=== PATIENT | male | born 1995 | race Two or more races ===

== ENCOUNTER 2016-09-05 21:46 | Inpatient (IN) | payer MEDICARE, MEDICAID ==
[~2016-09-05] VITALS: Ht 180.3 cm; Wt 97.1 kg
[~2016-09-05 21:46] MED LIST: ARIP15TA3 PO
[2016-09-06] MEDS ORDERED: LORazepam 1 MG TABLET PO PRN (02:30)
[2016-09-06] MEDS ORDERED: ZOLPIDEM TARTRATE 10 MG TABLET PO PRN (02:30)
[2016-09-06 03:06] VITALS: BP 138/67
[2016-09-06] MEDS ORDERED: INFLUENZA VIRUS VACCINE QVS 2016-17 (3YR+)/PF 60 MCG/0.5 ML SYRINGE IM ONE (03:30)
[2016-09-06] MEDS ORDERED: -PHARMACY VACCINE NOTE- MISC ONE ×2 (03:30)
[2016-09-06 08:52] VITALS: BP 137/75
[2016-09-06] MEDS ORDERED: CloNIDine HCL 0.1 MG TABLET PO PRN (09:00)
[2016-09-06] MEDS ORDERED: MAGNESIUM OXIDE 400 MG TABLET PO ONE (13:30)
[2016-09-06] MEDS ORDERED: HYDROCORTISONE 1% 30 GM OINTMENT TP PRN (13:30)
[2016-09-06 16:26] VITALS: BP 124/65
[2016-09-06 17:04] VITALS: BP 130/70
[2016-09-06] MEDS: OLANZapine 7.5 MG TABLET PO SCH (20:39)
[2016-09-07 08:14] VITALS: BP 124/64
[2016-09-07] MEDS: CHOLECALCIFEROL (VIT D3) 2,000 UNITS TABLET PO SCH (08:28)
[2016-09-07 16:00] VITALS: BP 138/74
[2016-09-07] MEDS: OLANZapine 7.5 MG TABLET PO SCH (20:37)
[2016-09-08 05:57] VITALS: BP 105/69
[2016-09-08] MEDS: CHOLECALCIFEROL (VIT D3) 2,000 UNITS TABLET PO SCH (09:00)
[2016-09-08 16:00] VITALS: BP 134/72
[2016-09-08] MEDS: OLANZapine 7.5 MG TABLET PO SCH (20:08)
[2016-09-08] MEDS ORDERED: ACETAMINOPHEN 325 MG TABLET PO PRN (23:30)
[2016-09-08] MEDS: IBUPROFEN 600 MG TABLET PO PRN (23:37)
[2016-09-08 23:38] VITALS: BP 140/77
[2016-09-09] MEDS ORDERED: VITAD1000 PO (01:02)
[2016-09-09] MEDS ORDERED: OLAN7.5T2 PO (01:02)
[2016-09-09] MEDS: IBUPROFEN 600 MG TABLET PO PRN (09:01)
[2016-09-09] MEDS: CHOLECALCIFEROL (VIT D3) 2,000 UNITS TABLET PO SCH (09:01)
== END 2016-09-09 10:15 | disposition home or self-care (01) | DRG 885 ==
LOC: B2S 09-06 02:27 → B3A 09-06 17:04
PROVIDERS: ADMIT Psychiatry & Neurology Psychiatry; ATTEND Psychiatry & Neurology Psychiatry
DX: F25.9 Schizoaffective disorder, unspecified (principal); R45.851 Suicidal ideations; J45.909 Unspecified asthma, uncomplicated; I10 Essential (primary) hypertension; E55.9 Vitamin D deficiency, unspecified; L30.9 Dermatitis, unspecified; F12.90 Cannabis use, unspecified, uncomplicated; Z79.899 Other long term (current) drug therapy; Z88.8 Allergy status to other drugs, medicaments and biological substances; Z28.21 Immunization not carried out because of patient refusal

== ENCOUNTER 2017-10-01 14:34 | Inpatient (IN) | payer MEDICARE, MEDICAID ==
[~2017-10-01] VITALS: Ht 180.3 cm; Wt 95.9 kg
[~2017-10-01 14:34] MED LIST changes: -ARIP15TA3 PO; +OLAN7.5T2 PO; +VITAD1000 PO
[2017-10-01] MEDS ORDERED: DIVA500T35 PO (16:56)
[2017-10-01 17:29] VITALS: BP 122/72
[2017-10-01] MEDS ORDERED: INFLUENZA VIRUS VACCINE QVS 2017-18 (3YR+)/PF 60 MCG/0.5 ML SYRINGE IM ONE (18:15)
[2017-10-01] MEDS: DIVALPROEX SODIUM 500 MG DR TABLET PO SCH (20:09)
[2017-10-01] MEDS: OLANZapine 7.5 MG TABLET PO SCH (20:09)
[2017-10-01] MEDS: ZOLPIDEM TARTRATE 10 MG TABLET PO PRN (21:37)
[2017-10-02 07:13] VITALS: BP 138/76
[2017-10-02] MEDS: DIVALPROEX SODIUM 500 MG DR TABLET PO SCH ×2 (08:16→20:33)
[2017-10-02 08:20] VITALS: BP 112/69
[2017-10-02 16:05] VITALS: BP 126/84
[2017-10-02] MEDS: LORazepam 2 MG TABLET PO PRN (18:57)
[2017-10-02] MEDS: OLANZapine 7.5 MG TABLET PO SCH (20:33)
[2017-10-03] MEDS: DIVALPROEX SODIUM 500 MG DR TABLET PO SCH ×2 (08:04→20:01)
[2017-10-03] MEDS: CHOLECALCIFEROL (VIT D3) 1,000 UNITS TABLET PO SCH (09:00)
[2017-10-03] MEDS: LORazepam 2 MG TABLET PO PRN (14:16)
[2017-10-03 16:05] VITALS: BP 122/72
[2017-10-03] MEDS: MAGNESIUM OXIDE 400 MG TABLET PO SCH (17:11)
[2017-10-03] MEDS: OLANZapine 7.5 MG TABLET PO SCH (20:01)
[2017-10-03] MEDS: ZOLPIDEM TARTRATE 10 MG TABLET PO PRN (21:24)
[2017-10-04] MEDS: DIVALPROEX SODIUM 500 MG DR TABLET PO SCH ×2 (08:38→20:05)
[2017-10-04] MEDS: CHOLECALCIFEROL (VIT D3) 1,000 UNITS TABLET PO SCH (08:42)
[2017-10-04] MEDS: MAGNESIUM OXIDE 400 MG TABLET PO SCH ×2 (08:42→17:00)
[2017-10-04] MEDS: LORazepam 2 MG TABLET PO PRN (15:51)
[2017-10-04 16:09] VITALS: BP 131/78
[2017-10-04] MEDS: ZOLPIDEM TARTRATE 10 MG TABLET PO PRN (20:05)
[2017-10-04] MEDS: OLANZapine 7.5 MG TABLET PO SCH (20:05)
[2017-10-05] MEDS: DIVALPROEX SODIUM 500 MG DR TABLET PO SCH (08:47)
[2017-10-05] MEDS: CHOLECALCIFEROL (VIT D3) 1,000 UNITS TABLET PO SCH (08:48)
[2017-10-05] MEDS: MAGNESIUM OXIDE 400 MG TABLET PO SCH (08:48)
== END 2017-10-05 09:20 | disposition home or self-care (01) | DRG 885 ==
LOC: B2S 16:30
DX: F25.1 Schizoaffective disorder, depressive type (principal); E83.42 Hypomagnesemia; R45.851 Suicidal ideations; F12.90 Cannabis use, unspecified, uncomplicated; E05.90 Thyrotoxicosis, unspecified without thyrotoxic crisis or storm; J45.909 Unspecified asthma, uncomplicated; Z59.0 Homelessness; Z91.19 Patient's noncompliance with other medical treatment and regimen; Z91.5 Personal history of self-harm; Z88.8 Allergy status to other drugs, medicaments and biological substances; Z79.899 Other long term (current) drug therapy
CPT/HCPCS: 90471

== ENCOUNTER 2017-11-22 23:25 | Inpatient (IN) | payer MEDICARE, MEDICAID ==
[~2017-11-22] VITALS: Ht 180.3 cm; Wt 100.7 kg
[~2017-11-22 23:25] MED LIST changes: +DIVA500T35 PO; +OLAN5TAB2 PO; +OLAN5TAB27 PO; -OLAN7.5T2 PO; -VITAD1000 PO
[2017-11-23 00:13] LABS: BASOPHILS % (AUTO) 0.9 % (0.0-2.0); EOSINOPHILS % (AUTO) 3.7 % (1.0-6.0); HEMATOCRIT 43.2 % (41-53); HEMOGLOBIN 14.4 g/dL (13.5-17.5); MEAN CORPUSCULAR HEMOGLOBIN 31.7 pg (26.0-34.0); MEAN CORPUSCULAR HGB CONC 33.4 G/dL (31.0-37.0); MEAN CORPUSCULAR VOLUME 95 fL (80-100); MONOCYTES # (AUTO) 0.8 K/uL (0.1-1.0); MONOCYTES % (AUTO) 11.2 % (2.0-9.0); NEUTROPHILS # (AUTO) 2.2 K/uL (1.8-7.7); NEUTROPHILS % (AUTO) 30.2 % (40.0-70.0); PLATELET COUNT (AUTO) 262 K/uL (150-450); RED BLOOD CELL COUNT(AUTO) 4.55 MIL/uL (4.50-5.90); RED CELL DISTRIBUTION WIDTH 13.3 % (11.5-14.5)
[2017-11-23 00:17] LABS: ANION GAP 6 mmol/L (8-16); CARBON DIOXIDE 31 mmol/L (22-29); CHLORIDE 102 mmol/L (98-107); CREATININE 1.02 mg/dL (0.60-1.30); GLOMERULAR FILTR. RATE CALC > 60 mL/min (>60); GLUCOSE,RANDOM 71 mg/dL (70-110); POTASSIUM 3.6 mmol/L (3.5-5.1); SODIUM SERUM 139 mmol/L (136-145); UREA NITROGEN, BLOOD 11 mg/dL (7-18)
[2017-11-23 00:22] LABS: ALANINE AMINOTRANSFERASE 31 U/L (12-78); ALBUMIN 3.8 g/dL (3.4-5.0); ALKALINE PHOSPHATASE 66 U/L (46-116); ASPARTATE AMINOTRANSFERASE 42 U/L (15-37); BILIRUBIN,TOTAL 0.4 mg/dL (0.1-1.0)
[2017-11-23 00:44] LABS: AMPHET/METH SCREEN,URINE NEGATIVE (NEGATIVE); BARBITURATE SCREEN, URINE NEGATIVE (NEGATIVE); BENZODIAZEPINES SCREEN,URINE NEGATIVE (NEGATIVE); CANNABINOID SCREEN,URINE NEGATIVE (NEGATIVE); COCAINE SCREEN,URINE NEGATIVE (NEGATIVE); METHADONE SCREEN, URINE NEGATIVE (NEGATIVE); OPIATE SCREEN,URINE NEGATIVE (NEGATIVE); PHENCYCLIDINE SCREEN,URINE NEGATIVE (NEGATIVE)
[2017-11-23] MEDS ORDERED: ZOLPIDEM TARTRATE 10 MG TABLET PO PRN (00:45)
[2017-11-23] MEDS ORDERED: OLANZapine 5 MG RAPDIS TABLET PO PRN (00:45)
[2017-11-23] MEDS ORDERED: LORazepam 2 MG TABLET PO PRN (00:45)
[2017-11-23 05:26] VITALS: BP 124/69
[2017-11-23 09:41] VITALS: BP 109/70
[2017-11-23] MEDS: OLANZapine 5 MG TABLET PO SCH (16:15)
[2017-11-23 19:32] VITALS: BP 126/82
[2017-11-23] MEDS: DIVALPROEX SODIUM 500 MG DR TABLET PO SCH (20:10)
[2017-11-24 06:31] VITALS: BP 118/81
[2017-11-24] MEDS: DIVALPROEX SODIUM 500 MG DR TABLET PO SCH ×2 (07:38→22:17)
[2017-11-24] MEDS: OLANZapine 5 MG TABLET PO SCH ×2 (07:38→16:30)
[2017-11-24 09:44] VITALS: BP 122/64
[2017-11-24 17:11] VITALS: BP 121/75
[2017-11-25] MEDS: OLANZapine 5 MG TABLET PO SCH ×2 (08:21→16:10)
[2017-11-25] MEDS: DIVALPROEX SODIUM 500 MG DR TABLET PO SCH ×2 (08:21→20:35)
[2017-11-25 17:24] VITALS: BP 134/75
[2017-11-26] MEDS: OLANZapine 5 MG TABLET PO SCH ×2 (07:56→16:18)
[2017-11-26] MEDS: DIVALPROEX SODIUM 500 MG DR TABLET PO SCH ×2 (07:56→20:29)
[2017-11-27] MEDS: OLANZapine 5 MG TABLET PO SCH (08:27)
[2017-11-27] MEDS: DIVALPROEX SODIUM 500 MG DR TABLET PO SCH (08:28)
[2017-11-27] MEDS ORDERED: ALBU8HFA IH (13:04)
[2017-11-27] MEDS ORDERED: ALBUTEROL SULFATE HFA 90 MCG/PUFF 8 GM INHALER IH PRN (13:15)
== END 2017-11-27 14:49 | disposition home or self-care (01) | DRG 885 ==
LOC: EMS 23:26 → UNDOADMIN 11-23 02:00 → 3EX 11-23 02:00 → B2X 11-23 02:00
DX: F25.1 Schizoaffective disorder, depressive type (principal); R45.851 Suicidal ideations; Z59.0 Homelessness; I10 Essential (primary) hypertension; J45.909 Unspecified asthma, uncomplicated; F31.9 Bipolar disorder, unspecified; E55.9 Vitamin D deficiency, unspecified; Z88.8 Allergy status to other drugs, medicaments and biological substances; Z79.899 Other long term (current) drug therapy; Z91.5 Personal history of self-harm
CPT/HCPCS: 87081; 99285; G0480

== ENCOUNTER 2017-12-10 13:59 | Inpatient (IN) | payer MEDICARE, MEDICAID ==
[~2017-12-10] VITALS: Ht 180.3 cm; Wt 105.8 kg
[~2017-12-10 13:59] MED LIST changes: +ALBU8HFA IH; -OLAN5TAB2 PO
[2017-12-10 15:53] LABS: BASOPHILS % (AUTO) 1.1 % (0.0-2.0); EOSINOPHILS % (AUTO) 4.3 % (1.0-6.0); HEMATOCRIT 42.4 % (41-53); HEMOGLOBIN 14.2 g/dL (13.5-17.5); LYMPHOCYTES # (AUTO) 2.5 K/uL (1.0-4.8); LYMPHOCYTES % (AUTO) 31.7 % (22.0-44.0); MEAN CORPUSCULAR HEMOGLOBIN 31.7 pg (26.0-34.0); MEAN CORPUSCULAR HGB CONC 33.5 G/dL (31.0-37.0); MEAN CORPUSCULAR VOLUME 95 fL (80-100); MONOCYTES # (AUTO) 0.8 K/uL (0.1-1.0); MONOCYTES % (AUTO) 10.1 % (2.0-9.0); NEUTROPHILS # (AUTO) 4.1 K/uL (1.8-7.7); NEUTROPHILS % (AUTO) 52.8 % (40.0-70.0); PLATELET COUNT (AUTO) 203 K/uL (150-450); RED BLOOD CELL COUNT(AUTO) 4.47 MIL/uL (4.50-5.90); RED CELL DISTRIBUTION WIDTH 13.5 % (11.5-14.5)
[2017-12-10 16:04] LABS: ANION GAP 8 mmol/L (8-16); CALCIUM, TOTAL 8.6 mg/dL (8.8-10.5); CARBON DIOXIDE 29 mmol/L (22-29); CHLORIDE 102 mmol/L (98-107); CREATININE 0.97 mg/dL (0.60-1.30); GLOMERULAR FILTR. RATE CALC > 60 mL/min (>60); GLUCOSE,RANDOM 83 mg/dL (70-110); POTASSIUM 3.8 mmol/L (3.5-5.1); SODIUM SERUM 139 mmol/L (136-145); UREA NITROGEN, BLOOD 10 mg/dL (7-18)
[2017-12-10 16:10] LABS: ALANINE AMINOTRANSFERASE 33 U/L (12-78); ALKALINE PHOSPHATASE 68 U/L (46-116); ASPARTATE AMINOTRANSFERASE 37 U/L (15-37); BILIRUBIN,TOTAL 0.3 mg/dL (0.1-1.0); TOTAL PROTEIN, SERUM 8.5 g/dL (6.4-8.2)
[2017-12-10 17:34] LABS: AMPHET/METH SCREEN,URINE NEGATIVE (NEGATIVE); BARBITURATE SCREEN, URINE NEGATIVE (NEGATIVE); BENZODIAZEPINES SCREEN,URINE NEGATIVE (NEGATIVE); CANNABINOID SCREEN,URINE NEGATIVE (NEGATIVE); COCAINE SCREEN,URINE NEGATIVE (NEGATIVE); METHADONE SCREEN, URINE NEGATIVE (NEGATIVE); OPIATE SCREEN,URINE NEGATIVE (NEGATIVE)
[2017-12-10 17:35] LABS: PHENCYCLIDINE SCREEN,URINE NEGATIVE (NEGATIVE)
[2017-12-10] MEDS ORDERED: LORazepam 2 MG TABLET PO PRN (18:15)
[2017-12-10] MEDS ORDERED: HALOPERIDOL 5 MG TABLET PO PRN (18:15)
[2017-12-10 20:00] VITALS: BP 126/70
[2017-12-11] MEDS: OLANZapine 5 MG TABLET PO SCH ×2 (09:45→20:37)
[2017-12-11] MEDS: DIVALPROEX SODIUM 500 MG DR TABLET PO SCH ×2 (09:45→20:36)
[2017-12-11 12:30] VITALS: BP 128/75
[2017-12-11 16:00] VITALS: BP 124/76
[2017-12-12] MEDS: OLANZapine 5 MG TABLET PO SCH ×2 (08:28→20:27)
[2017-12-12] MEDS: DIVALPROEX SODIUM 500 MG DR TABLET PO SCH ×2 (08:29→20:27)
[2017-12-12 09:00] VITALS: BP 145/81
[2017-12-12 19:06] VITALS: BP 133/87
[2017-12-12] MEDS: ZOLPIDEM TARTRATE 10 MG TABLET PO PRN (22:55)
[2017-12-13 01:53] VITALS: BP 137/71
[2017-12-13] MEDS: DIVALPROEX SODIUM 500 MG DR TABLET PO SCH ×2 (09:54→21:10)
[2017-12-13] MEDS: OLANZapine 5 MG TABLET PO SCH ×2 (09:54→21:10)
[2017-12-13] MEDS ORDERED: BENZOCAINE/MENTHOL LOZENGE PO PRN (11:15)
[2017-12-13] MEDS ORDERED: AZITHROMYCIN 250 MG TABLET PO ONE (11:15)
[2017-12-13] MEDS: MUPIROCIN CALCIUM 2% 22 GM OINTMENT NASAL SCH (17:37)
[2017-12-13] MEDS: ZOLPIDEM TARTRATE 10 MG TABLET PO PRN (21:10)
[2017-12-13 21:38] VITALS: BP 129/77
[2017-12-13] MEDS: ACETAMINOPHEN 325 MG TABLET PO PRN (21:39)
[2017-12-14 04:20] VITALS: BP 145/85
[2017-12-14] MEDS: ACETAMINOPHEN 325 MG TABLET PO PRN ×3 (04:24→18:31)
[2017-12-14] MEDS: AZITHROMYCIN 250 MG TABLET PO SCH (09:31)
[2017-12-14] MEDS: DIVALPROEX SODIUM 500 MG DR TABLET PO SCH ×2 (09:31→20:20)
[2017-12-14] MEDS: OLANZapine 5 MG TABLET PO SCH ×2 (09:32→20:20)
[2017-12-14] MEDS: MUPIROCIN CALCIUM 2% 22 GM OINTMENT NASAL SCH ×2 (09:32→16:58)
[2017-12-15 05:12] VITALS: BP 125/69
[2017-12-15] MEDS: AZITHROMYCIN 250 MG TABLET PO SCH (08:44)
[2017-12-15] MEDS: DIVALPROEX SODIUM 500 MG DR TABLET PO SCH ×3 (09:00→20:10)
[2017-12-15] MEDS: OLANZapine 5 MG TABLET PO SCH ×3 (09:00→20:10)
[2017-12-15] MEDS: MUPIROCIN CALCIUM 2% 22 GM OINTMENT NASAL SCH ×3 (09:00→16:48)
[2017-12-15 17:55] VITALS: BP 148/85
[2017-12-15] MEDS: ZOLPIDEM TARTRATE 10 MG TABLET PO PRN (21:51)
[2017-12-16] MEDS: MUPIROCIN CALCIUM 2% 22 GM OINTMENT NASAL SCH ×2 (09:08→16:06)
[2017-12-16] MEDS: AZITHROMYCIN 250 MG TABLET PO SCH (09:08)
[2017-12-16] MEDS: DIVALPROEX SODIUM 500 MG DR TABLET PO SCH ×2 (09:08→20:25)
[2017-12-16] MEDS: OLANZapine 5 MG TABLET PO SCH ×2 (09:08→20:25)
[2017-12-16 09:33] VITALS: BP 126/71
[2017-12-16 16:50] VITALS: BP 146/75
[2017-12-16] MEDS: ZOLPIDEM TARTRATE 10 MG TABLET PO PRN (21:42)
[2017-12-17] MEDS: OLANZapine 5 MG TABLET PO SCH (08:09)
[2017-12-17] MEDS: DIVALPROEX SODIUM 500 MG DR TABLET PO SCH (08:09)
[2017-12-17] MEDS: AZITHROMYCIN 250 MG TABLET PO SCH (08:09)
[2017-12-17] MEDS: MUPIROCIN CALCIUM 2% 22 GM OINTMENT NASAL SCH (08:10)
[2017-12-17] MEDS ORDERED: OLAN5TAB2 PO (10:40)
[2017-12-17] MEDS ORDERED: MUPI1OIN4 NS (10:41)
[2017-12-17 13:26] VITALS: BP 124/84
== END 2017-12-17 13:00 | disposition home or self-care (01) | DRG 885 ==
LOC: EMS 14:02 → 3EI 18:45
DX: F32.0 Major depressive disorder, single episode, mild (principal); R45.851 Suicidal ideations; F25.1 Schizoaffective disorder, depressive type; J02.9 Acute pharyngitis, unspecified; J45.909 Unspecified asthma, uncomplicated; I10 Essential (primary) hypertension; E55.9 Vitamin D deficiency, unspecified; F12.90 Cannabis use, unspecified, uncomplicated; Z59.0 Homelessness; Z88.8 Allergy status to other drugs, medicaments and biological substances; Z79.899 Other long term (current) drug therapy
CPT/HCPCS: 87081; 99285; G0480

== ENCOUNTER 2019-07-09 23:10 | Inpatient (IN) | payer MEDICARE, MEDICAID ==
[~2019-07-09] VITALS: Ht 180.3 cm; Wt 90.9 kg
[~2019-07-09 23:10] MED LIST changes: -ALBU8HFA IH; +DIVA-78 PO; -DIVA500T35 PO; +MUPI1OIN4 NS; +OLAN5TAB2 PO; -OLAN5TAB27 PO
[2019-07-09 23:47] LABS: BASOPHILS % (AUTO) 0.7 % (0.0-2.0); EOSINOPHILS % (AUTO) 3.5 % (1.0-6.0); HEMATOCRIT 42.8 % (41-53); HEMOGLOBIN 14.3 g/dL (13.5-17.5); LYMPHOCYTES # (AUTO) 3.4 K/uL (1.0-4.8); LYMPHOCYTES % (AUTO) 40.5 % (22.0-44.0); MEAN CORPUSCULAR HEMOGLOBIN 31.9 pg (26.0-34.0); MEAN CORPUSCULAR HGB CONC 33.5 G/dL (31.0-37.0); MEAN CORPUSCULAR VOLUME 95 fL (80-100); MONOCYTES # (AUTO) 1.1 K/uL (0.1-1.0); MONOCYTES % (AUTO) 12.6 % (2.0-9.0); NEUTROPHILS # (AUTO) 3.6 K/uL (1.8-7.7); NEUTROPHILS % (AUTO) 42.7 % (40.0-70.0); PLATELET COUNT (AUTO) 281 K/uL (150-450); RED BLOOD CELL COUNT(AUTO) 4.49 MIL/uL (4.50-5.90); RED CELL DISTRIBUTION WIDTH 13.1 % (11.5-14.5)
[2019-07-09 23:52] LABS: AMPHET/METH SCREEN,URINE NEGATIVE (NEGATIVE); BARBITURATE SCREEN, URINE NEGATIVE (NEGATIVE); BENZODIAZEPINES SCREEN,URINE NEGATIVE (NEGATIVE); CANNABINOID SCREEN,URINE NEGATIVE (NEGATIVE); COCAINE SCREEN,URINE NEGATIVE (NEGATIVE); METHADONE SCREEN, URINE NEGATIVE (NEGATIVE); OPIATE SCREEN,URINE NEGATIVE (NEGATIVE); PHENCYCLIDINE SCREEN,URINE NEGATIVE (NEGATIVE)
[2019-07-09 23:54] LABS: ANION GAP 7 mmol/L (8-16); CALCIUM, TOTAL 9.1 mg/dL (8.8-10.5); CARBON DIOXIDE 31 mmol/L (22-29); CHLORIDE 103 mmol/L (98-107); CREATININE 1.13 mg/dL (0.60-1.30); GLOMERULAR FILTR. RATE CALC > 60 mL/min (>60); GLUCOSE,RANDOM 81 mg/dL (70-110); POTASSIUM 3.9 mmol/L (3.5-5.1); SODIUM SERUM 141 mmol/L (136-145); UREA NITROGEN, BLOOD 14 mg/dL (7-18)
[2019-07-10] LABS: ALKALINE PHOSPHATASE 78 U/L (46-116); ASPARTATE AMINOTRANSFERASE 26 U/L (15-37); BILIRUBIN,TOTAL 0.2 mg/dL (0.1-1.0)
[2019-07-10 00:01] LABS: ALANINE AMINOTRANSFERASE 26 U/L (12-78); ALBUMIN 3.8 g/dL (3.4-5.0); TOTAL PROTEIN, SERUM 8.7 g/dL (6.4-8.2)
[2019-07-10 03:00] VITALS: BP 124/79
[2019-07-10] MEDS ORDERED: -PHARMACY VACCINE NOTE- MISC ONE (04:00)
[2019-07-10] MEDS ORDERED: INFLUENZA VIRUS VACCINE QVS 2019-20 (3YR+)/PF 60 MCG/0.5 ML SYRINGE IM ONE (04:00)
[2019-07-10] MEDS: OLANZapine 5 MG TABLET PO SCH ×2 (09:04→17:48)
[2019-07-10] MEDS: DIVALPROEX SODIUM 500 MG ER TABLET PO SCH ×2 (09:04→20:33)
[2019-07-10 21:22] VITALS: BP 122/82
[2019-07-11 06:08] VITALS: BP 113/62
[2019-07-11 07:26] LABS: APPEARANCE,URINE TURBID (CLEAR); BILIRUBIN,URINE NEGATIVE (NEGATIVE); GLUCOSE, URINE (UA) NEGATIVE (NEGATIVE); KETONES,URINE NEGATIVE (NEGATIVE); LEUKOCYTE ESTERASE ,URINE LARGE (NEGATIVE); NITRATE,URINE NEGATIVE (NEGATIVE); OCCULT BLOOD,URINE LARGE (NEGATIVE); PH,URINE 6.5 (5.0-8.0); PROTEIN,URINE POS 1+ (NEGATIVE); UROBILINOGEN,URINE 0.2 mg/dL (<=1.0)
[2019-07-11 07:29] LABS: BACTERIA,URINE Moderate /HPF (None Seen); RBC,URINE 51-100 /HPF (0-2); WBC,URINE >100 /HPF (0-5)
[2019-07-11] MEDS: DIVALPROEX SODIUM 500 MG ER TABLET PO SCH ×2 (09:13→20:30)
[2019-07-11] MEDS: OLANZapine 5 MG TABLET PO SCH ×2 (09:13→16:33)
[2019-07-11] MEDS: NITROFURANTOIN/NITROFURAN MAC 100 MG CAPSULE [MACROBID] PO SCH ×2 (09:26→16:33)
[2019-07-11 16:06] VITALS: BP 128/65
[2019-07-12] MEDS: NITROFURANTOIN/NITROFURAN MAC 100 MG CAPSULE [MACROBID] PO SCH ×2 (08:52→16:24)
[2019-07-12] MEDS: DIVALPROEX SODIUM 500 MG ER TABLET PO SCH ×2 (08:52→20:23)
[2019-07-12] MEDS: OLANZapine 5 MG TABLET PO SCH (08:52)
[2019-07-12] MEDS: OLANZapine 10 MG TABLET PO SCH (16:24)
[2019-07-12] MEDS: ZOLPIDEM TARTRATE 10 MG TABLET PO PRN (22:34)
[2019-07-13 09:23] VITALS: BP 132/77
[2019-07-13] MEDS: DIVALPROEX SODIUM 500 MG ER TABLET PO SCH ×2 (10:07→20:31)
[2019-07-13] MEDS: OLANZapine 10 MG TABLET PO SCH ×2 (10:07→17:12)
[2019-07-13] MEDS: NITROFURANTOIN/NITROFURAN MAC 100 MG CAPSULE [MACROBID] PO SCH ×2 (12:05→17:12)
[2019-07-13] MEDS: ZOLPIDEM TARTRATE 10 MG TABLET PO PRN (22:40)
[2019-07-14] MEDS: OLANZapine 10 MG TABLET PO SCH ×2 (09:11→17:05)
[2019-07-14] MEDS: DIVALPROEX SODIUM 500 MG ER TABLET PO SCH ×2 (09:11→20:28)
[2019-07-15] MEDS: OLANZapine 10 MG TABLET PO SCH ×2 (08:23→16:30)
[2019-07-15] MEDS: LORazepam 2 MG TABLET PO PRN (08:23)
[2019-07-15] MEDS: DIVALPROEX SODIUM 500 MG ER TABLET PO SCH ×2 (08:23→20:12)
[2019-07-16] MEDS: DIVALPROEX SODIUM 500 MG ER TABLET PO SCH ×2 (09:33→20:17)
[2019-07-16] MEDS: OLANZapine 10 MG TABLET PO SCH ×2 (09:33→16:45)
[2019-07-16] MEDS: ZOLPIDEM TARTRATE 10 MG TABLET PO PRN (22:54)
[2019-07-17] MEDS: OLANZapine 10 MG TABLET PO SCH ×2 (08:30→17:32)
[2019-07-17] MEDS: DIVALPROEX SODIUM 500 MG ER TABLET PO SCH ×2 (08:30→20:16)
[2019-07-17] MEDS: ZOLPIDEM TARTRATE 10 MG TABLET PO PRN (21:04)
[2019-07-18] MEDS: OLANZapine 10 MG TABLET PO SCH ×2 (08:46→16:08)
[2019-07-18] MEDS: DIVALPROEX SODIUM 500 MG ER TABLET PO SCH ×2 (08:46→20:14)
[2019-07-18] MEDS: CIPROFLOXACIN HCL 500 MG TABLET PO SCH ×2 (08:46→16:07)
[2019-07-18 10:19] VITALS: BP 107/67
[2019-07-18] MEDS: ZOLPIDEM TARTRATE 10 MG TABLET PO PRN (20:15)
[2019-07-19] MEDS: OLANZapine 10 MG TABLET PO SCH ×2 (07:48→16:45)
[2019-07-19] MEDS: CIPROFLOXACIN HCL 500 MG TABLET PO SCH ×2 (07:48→16:45)
[2019-07-19] MEDS: DIVALPROEX SODIUM 500 MG ER TABLET PO SCH ×2 (07:48→20:20)
[2019-07-19 13:55] VITALS: BP 117/86
[2019-07-19 16:00] VITALS: BP 129/79
[2019-07-19] MEDS: ZOLPIDEM TARTRATE 10 MG TABLET PO PRN (20:20)
[2019-07-19] MEDS ORDERED: LACTULOSE 20 GM/30 ML SOLUTION UDCUP PO PRN (21:15)
[2019-07-19] MEDS ORDERED: DOCUSATE SODIUM 100 MG CAPSULE PO PRN (21:15)
[2019-07-19] MEDS: LORazepam 2 MG TABLET PO PRN (22:36)
[2019-07-20] MEDS: LORazepam 2 MG TABLET PO PRN (02:43)
[2019-07-20] MEDS ORDERED: DIVA500T52 PO (07:44)
[2019-07-20] MEDS ORDERED: OLAN10TA3 PO (07:45)
[2019-07-20] MEDS ORDERED: CIPR-278 PO (07:47)
[2019-07-20] MEDS: OLANZapine 10 MG TABLET PO SCH (08:02)
[2019-07-20] MEDS: DIVALPROEX SODIUM 500 MG ER TABLET PO SCH (08:02)
[2019-07-20] MEDS: CIPROFLOXACIN HCL 500 MG TABLET PO SCH (08:03)
== END 2019-07-20 08:30 | disposition home or self-care (01) | DRG 885 ==
LOC: EMS 23:12 → B2X 07-10 00:39 → 3EX 07-12 22:06
PROVIDERS: ADMIT Psychiatry & Neurology Psychiatry; ATTEND Psychiatry & Neurology Psychiatry
DX: F25.1 Schizoaffective disorder, depressive type (principal); R45.851 Suicidal ideations; Z59.0 Homelessness; E83.42 Hypomagnesemia; F19.90 Other psychoactive substance use, unspecified, uncomplicated; R45.87 Impulsiveness; F41.9 Anxiety disorder, unspecified; J45.909 Unspecified asthma, uncomplicated; Z91.14 Patient's other noncompliance with medication regimen
CPT/HCPCS: 87086; G0378; G0480

== ENCOUNTER 2020-11-13 14:15 | Inpatient (IN) | payer MEDICARE, MEDICAID ==
[~2020-11-13] VITALS: Ht 180.3 cm; Wt 101.3 kg
[~2020-11-13 14:15] MED LIST changes: -DIVA-78 PO; +DIVA-80 PO; -MUPI1OIN4 NS; +OLAN10TA20 PO; -OLAN5TAB2 PO
[2020-11-13] MEDS ORDERED: ZOLPIDEM TARTRATE 10 MG TABLET PO PRN (15:00)
[2020-11-13] MEDS ORDERED: OLANZapine 5 MG RAPDIS TABLET PO PRN (15:00)
[2020-11-13] MEDS ORDERED: LORazepam 2 MG TABLET PO PRN (15:00)
[2020-11-13 15:04] LABS: COVID AG,FIA SOURCE NASOPHARYNGEAL
[2020-11-13 15:11] LABS: EOSINOPHILS % (AUTO) 4.1 % (1.0-6.0); HEMATOCRIT 37.7 % (41-53); HEMOGLOBIN 12.6 g/dL (13.5-17.5); LYMPHOCYTES # (AUTO) 2.2 K/uL (1.0-4.8); LYMPHOCYTES % (AUTO) 39.5 % (22.0-44.0); MEAN CORPUSCULAR HEMOGLOBIN 32.2 pg (26.0-34.0); MEAN CORPUSCULAR HGB CONC 33.4 G/dL (31.0-37.0); MEAN CORPUSCULAR VOLUME 96 fL (80-100); MONOCYTES # (AUTO) 0.6 K/uL (0.1-1.0); MONOCYTES % (AUTO) 10.3 % (2.0-9.0); NEUTROPHILS # (AUTO) 2.5 K/uL (1.8-7.7); NEUTROPHILS % (AUTO) 45.1 % (40.0-70.0); PLATELET COUNT (AUTO) 211 K/uL (150-450); RED BLOOD CELL COUNT(AUTO) 3.91 MIL/uL (4.50-5.90); RED CELL DISTRIBUTION WIDTH 13.4 % (11.5-14.5)
[2020-11-13 15:23] LABS: ANION GAP 7 mmol/L (8-16); CALCIUM, TOTAL 8.7 mg/dL (8.8-10.5); CARBON DIOXIDE 27 mmol/L (22-29); CHLORIDE 106 mmol/L (98-107); CREATININE 1.01 mg/dL (0.60-1.30); GLOMERULAR FILTR. RATE CALC > 60 mL/min (>60); GLUCOSE,RANDOM 88 mg/dL (70-110); POTASSIUM 3.9 mmol/L (3.5-5.1); SODIUM SERUM 140 mmol/L (136-145); UREA NITROGEN, BLOOD 7 mg/dL (7-18)
[2020-11-13 15:26] LABS: AMPHET/METH SCREEN,URINE NEGATIVE (NEGATIVE); BARBITURATE SCREEN, URINE NEGATIVE (NEGATIVE); BENZODIAZEPINES SCREEN,URINE NEGATIVE (NEGATIVE); CANNABINOID SCREEN,URINE NEGATIVE (NEGATIVE); COCAINE SCREEN,URINE NEGATIVE (NEGATIVE); METHADONE SCREEN, URINE NEGATIVE (NEGATIVE); OPIATE SCREEN,URINE NEGATIVE (NEGATIVE)
[2020-11-13 15:29] LABS: ALANINE AMINOTRANSFERASE 24 U/L (12-78); ALBUMIN 3.5 g/dL (3.4-5.0); ALKALINE PHOSPHATASE 64 U/L (46-116); ASPARTATE AMINOTRANSFERASE 24 U/L (15-37); BILIRUBIN,TOTAL 0.2 mg/dL (0.1-1.0); TOTAL PROTEIN, SERUM 6.8 g/dL (6.4-8.2)
[2020-11-13 15:29] LABS: APPEARANCE,URINE CLEAR (CLEAR); BILIRUBIN,URINE NEGATIVE (NEGATIVE); GLUCOSE, URINE (UA) NEGATIVE (NEGATIVE); KETONES,URINE NEGATIVE (NEGATIVE); LEUKOCYTE ESTERASE ,URINE NEGATIVE (NEGATIVE); NITRATE,URINE NEGATIVE (NEGATIVE); OCCULT BLOOD,URINE NEGATIVE (NEGATIVE); PH,URINE 6.5 (5.0-8.0); PROTEIN,URINE NEGATIVE (NEGATIVE)
[2020-11-13 15:31] LABS: PHENCYCLIDINE SCREEN,URINE NEGATIVE (NEGATIVE)
[2020-11-13 20:27] VITALS: BP 148/81
[2020-11-14] MEDS ORDERED: PNEUMOCOCCAL VACCINE POLYVALENT 0.5 ML VIAL [PPSV23] IM. ONE (02:45)
[2020-11-14] MEDS ORDERED: DOCUSATE SODIUM 100 MG CAPSULE PO PRN (07:00)
[2020-11-14] MEDS ORDERED: PETROLATUM,WHITE 28 GM JELLY TP PRN (07:00)
[2020-11-14] MEDS ORDERED: CloNIDine HCL 0.1 MG TABLET PO PRN (07:00)
[2020-11-14] MEDS ORDERED: ACETAMINOPHEN 325 MG TABLET PO PRN (07:00)
[2020-11-14] MEDS ORDERED: MAG HYDROX/AL HYDROX/SIMETH ES 30 ML SUSPENSION UDCUP PO PRN (07:00)
[2020-11-14] MEDS ORDERED: GuaiFENesin/D-METHORPHAN [SUGAR-FREE] 200-20MG/10 ML SYRUP UDCUP PO PRN (07:00)
[2020-11-14] MEDS ORDERED: MAGNESIUM HYDROXIDE SUSPENSION 30 ML UDCUP PO PRN (07:00)
[2020-11-14] MEDS ORDERED: ONDANSETRON HCL 4 MG TABLET PO PRN (07:00)
[2020-11-14] MEDS ORDERED: NICOTINE 14 MG/24 HOUR PATCH TD PRN (07:00)
[2020-11-14] MEDS ORDERED: LOPERAMIDE HCL 2 MG CAPSULE PO PRN (07:00)
[2020-11-14] MEDS ORDERED: IBUPROFEN 400 MG TABLET PO PRN (07:00)
[2020-11-14] MEDS ORDERED: ALBUTEROL SULFATE HFA 90 MCG/PUFF 8 GM INHALER IH PRN (07:00)
[2020-11-14] MEDS: DIVALPROEX SODIUM 500 MG DR TABLET PO SCH ×2 (10:41→16:57)
[2020-11-14] MEDS: OLANZapine 10 MG TABLET PO SCH ×2 (10:41→16:57)
[2020-11-15 00:42] VITALS: BP 140/86
[2020-11-15] MEDS: DIVALPROEX SODIUM 500 MG DR TABLET PO SCH ×2 (09:39→16:34)
[2020-11-15] MEDS: OLANZapine 10 MG TABLET PO SCH ×2 (09:39→16:35)
[2020-11-15 16:31] VITALS: BP 129/67
[2020-11-16] MEDS: OLANZapine 10 MG TABLET PO SCH ×2 (08:30→16:39)
[2020-11-16] MEDS: DIVALPROEX SODIUM 500 MG DR TABLET PO SCH ×2 (08:30→16:39)
[2020-11-16 08:58] VITALS: BP 111/61
[2020-11-17] MEDS: DIVALPROEX SODIUM 500 MG DR TABLET PO SCH ×2 (08:46→16:25)
[2020-11-17] MEDS: OLANZapine 10 MG TABLET PO SCH ×2 (08:46→16:25)
[2020-11-17 16:32] VITALS: BP 133/77
[2020-11-18 07:28] LABS: COVID AG,FIA SOURCE NASOPHARYNGEAL
[2020-11-18] MEDS: DIVALPROEX SODIUM 500 MG DR TABLET PO SCH (08:30)
[2020-11-18] MEDS: OLANZapine 10 MG TABLET PO SCH (08:30)
== END 2020-11-18 12:35 | disposition home or self-care (01) | DRG 885 ==
LOC: EMS 14:15 → B2S 15:36
PROVIDERS: ADMIT Psychiatry & Neurology Psychiatry; ATTEND Psychiatry & Neurology Psychiatry
DX: F25.1 Schizoaffective disorder, depressive type (principal); R45.851 Suicidal ideations; F64.9 Gender identity disorder, unspecified; Z20.822 Contact with and (suspected) exposure to COVID-19; I10 Essential (primary) hypertension; J45.909 Unspecified asthma, uncomplicated; D64.9 Anemia, unspecified; Z28.21 Immunization not carried out because of patient refusal
CPT/HCPCS: 80053; 81003; 85025; 87426; 99285; G0480

== ENCOUNTER 2021-03-10 22:21 | Inpatient (IN) | payer MEDICARE, MEDICAID ==
[~2021-03-10] VITALS: Ht 180.3 cm; Wt 111.8 kg
[~2021-03-10 22:21] MED LIST changes: +OLAN10 PO; -OLAN10TA20 PO
[2021-03-10] MEDS ORDERED: LORazepam 2 MG TABLET PO PRN (23:45)
[2021-03-10] MEDS ORDERED: OLANZapine 5 MG RAPDIS TABLET PO PRN (23:45)
[2021-03-11 00:06] LABS: BASOPHILS % (AUTO) 1.1 % (0.0-2.0); EOSINOPHILS % (AUTO) 7.4 % (1.0-6.0); HEMATOCRIT 39.9 % (41-53); HEMOGLOBIN 13.1 g/dL (13.5-17.5); LYMPHOCYTES # (AUTO) 3.4 K/uL (1.0-4.8); LYMPHOCYTES % (AUTO) 43.4 % (22.0-44.0); MEAN CORPUSCULAR HEMOGLOBIN 31.1 pg (26.0-34.0); MEAN CORPUSCULAR HGB CONC 32.9 G/dL (31.0-37.0); MEAN CORPUSCULAR VOLUME 95 fL (80-100); MONOCYTES # (AUTO) 0.8 K/uL (0.1-1.0); MONOCYTES % (AUTO) 10.1 % (2.0-9.0); PLATELET COUNT (AUTO) 195 K/uL (150-450); RED BLOOD CELL COUNT(AUTO) 4.22 MIL/uL (4.50-5.90); RED CELL DISTRIBUTION WIDTH 14.8 % (11.5-14.5)
[2021-03-11 00:18] LABS: COVID AG,FIA SOURCE NASAL SWAB
[2021-03-11 00:25] LABS: ANION GAP 9 mmol/L (8-16); CALCIUM, TOTAL 8.6 mg/dL (8.8-10.5); CARBON DIOXIDE 28 mmol/L (22-29); CHLORIDE 105 mmol/L (98-107); CREATININE 0.96 mg/dL (0.60-1.30); GLOMERULAR FILTR. RATE CALC > 60 mL/min (>60); GLUCOSE,RANDOM 100 mg/dL (70-110); POTASSIUM 3.7 mmol/L (3.5-5.1); SODIUM SERUM 142 mmol/L (136-145); UREA NITROGEN, BLOOD 10 mg/dL (7-18)
[2021-03-11 00:30] LABS: ALANINE AMINOTRANSFERASE 29 U/L (12-78); ALBUMIN 3.7 g/dL (3.4-5.0); ALKALINE PHOSPHATASE 58 U/L (46-116); ASPARTATE AMINOTRANSFERASE 30 U/L (15-37); BILIRUBIN,TOTAL 0.2 mg/dL (0.1-1.0); TOTAL PROTEIN, SERUM 7.8 g/dL (6.4-8.2)
[2021-03-11 00:32] LABS: APPEARANCE,URINE CLEAR (CLEAR); BILIRUBIN,URINE NEGATIVE (NEGATIVE); GLUCOSE, URINE (UA) NEGATIVE (NEGATIVE); KETONES,URINE NEGATIVE (NEGATIVE); LEUKOCYTE ESTERASE ,URINE NEGATIVE (NEGATIVE); NITRATE,URINE NEGATIVE (NEGATIVE); OCCULT BLOOD,URINE NEGATIVE (NEGATIVE); PROTEIN,URINE POS 1+ (NEGATIVE); UROBILINOGEN,URINE 0.2 mg/dL (<=1.0)
[2021-03-11 00:59] LABS: AMPHET/METH SCREEN,URINE NEGATIVE (NEGATIVE); BARBITURATE SCREEN, URINE NEGATIVE (NEGATIVE); BENZODIAZEPINES SCREEN,URINE NEGATIVE (NEGATIVE); CANNABINOID SCREEN,URINE NEGATIVE (NEGATIVE); COCAINE SCREEN,URINE NEGATIVE (NEGATIVE); METHADONE SCREEN, URINE NEGATIVE (NEGATIVE); OPIATE SCREEN,URINE NEGATIVE (NEGATIVE)
[2021-03-11 01:02] LABS: PHENCYCLIDINE SCREEN,URINE NEGATIVE (NEGATIVE)
[2021-03-11 01:04] LABS: CHOL/HDL RATIO 2.8 (4.2-7.3); CHOLESTEROL 148 mg/dL (131-200); HDL CHOLESTEROL 53 mg/dL (40-60); LDL CHOL (CALC.) 75 mg/dL (0-130); TRIGLYCERIDES 101 mg/dL (15-150)
[2021-03-11 04:43] VITALS: BP 144/79
[2021-03-11] MEDS ORDERED: PNEUMOCOCCAL VACCINE POLYVALENT 0.5 ML VIAL [PPSV23] IM. ONE (06:30)
[2021-03-11] MEDS ORDERED: MAG HYDROX/AL HYDROX/SIMETH ES 30 ML SUSPENSION UDCUP PO PRN (07:30)
[2021-03-11] MEDS ORDERED: NICOTINE 14 MG/24 HOUR PATCH TD PRN (07:30)
[2021-03-11] MEDS ORDERED: CloNIDine HCL 0.1 MG TABLET PO PRN (07:30)
[2021-03-11] MEDS ORDERED: ALBUTEROL SULFATE HFA 90 MCG/PUFF 8 GM INHALER IH PRN (07:30)
[2021-03-11] MEDS ORDERED: DOCUSATE SODIUM 100 MG CAPSULE PO PRN (07:30)
[2021-03-11] MEDS ORDERED: ONDANSETRON HCL 4 MG TABLET PO PRN (07:30)
[2021-03-11] MEDS ORDERED: GuaiFENesin/D-METHORPHAN [SUGAR-FREE] 200-20MG/10 ML SYRUP UDCUP PO PRN (07:30)
[2021-03-11] MEDS ORDERED: ACETAMINOPHEN 325 MG TABLET PO PRN (07:30)
[2021-03-11] MEDS ORDERED: MAGNESIUM HYDROXIDE SUSPENSION 30 ML UDCUP PO PRN (07:30)
[2021-03-11] MEDS ORDERED: PETROLATUM,WHITE 28 GM JELLY TP PRN (07:30)
[2021-03-11] MEDS: DIVALPROEX SODIUM 500 MG DR TABLET PO SCH ×2 (11:30→16:24)
[2021-03-11] MEDS: OLANZapine 10 MG TABLET PO SCH ×2 (11:30→16:24)
[2021-03-12 00:16] VITALS: BP 117/77
[2021-03-12] MEDS: OLANZapine 10 MG TABLET PO SCH ×2 (08:21→16:10)
[2021-03-12] MEDS: DIVALPROEX SODIUM 500 MG DR TABLET PO SCH ×2 (08:21→16:10)
[2021-03-13] MEDS: OLANZapine 10 MG TABLET PO SCH ×2 (08:09→17:05)
[2021-03-13] MEDS: DIVALPROEX SODIUM 500 MG DR TABLET PO SCH ×2 (08:09→17:05)
[2021-03-13 16:14] VITALS: BP 143/77
[2021-03-14 00:46] VITALS: BP_SYST 132; BP_SYST 140; BP_DIAS 67; BP_DIAS 87
[2021-03-14] MEDS: DIVALPROEX SODIUM 500 MG DR TABLET PO SCH ×2 (08:49→16:26)
[2021-03-14] MEDS: OLANZapine 10 MG TABLET PO SCH ×2 (08:49→16:26)
[2021-03-14 16:05] VITALS: BP 130/76
[2021-03-14] MEDS: ZOLPIDEM TARTRATE 10 MG TABLET PO PRN (21:26)
[2021-03-15 00:41] VITALS: BP 104/50
[2021-03-15] MEDS: DIVALPROEX SODIUM 500 MG DR TABLET PO SCH ×2 (09:13→16:30)
[2021-03-15] MEDS: OLANZapine 10 MG TABLET PO SCH ×2 (09:13→16:30)
[2021-03-15 16:09] VITALS: BP 115/60
[2021-03-15] MEDS: ZOLPIDEM TARTRATE 10 MG TABLET PO PRN (20:59)
[2021-03-15] MEDS: IBUPROFEN 400 MG TABLET PO PRN (22:29)
[2021-03-16 02:54] VITALS: BP 111/62
[2021-03-16 07:12] LABS: COVID AG,FIA SOURCE NASOPHARYNGEAL
[2021-03-16] MEDS: OLANZapine 10 MG TABLET PO SCH ×2 (08:01→16:13)
[2021-03-16] MEDS: DIVALPROEX SODIUM 500 MG DR TABLET PO SCH ×2 (08:01→16:13)
[2021-03-16 09:29] VITALS: BP 124/66
[2021-03-16 16:12] VITALS: BP 130/81
[2021-03-16 17:22] VITALS: BP 137/81
[2021-03-16] MEDS: IBUPROFEN 400 MG TABLET PO PRN (17:22)
[2021-03-16] MEDS: ZOLPIDEM TARTRATE 10 MG TABLET PO PRN (21:23)
[2021-03-17 01:09] VITALS: BP 131/78
[2021-03-17] MEDS: OLANZapine 10 MG TABLET PO SCH ×2 (08:26→16:11)
[2021-03-17] MEDS: DIVALPROEX SODIUM 500 MG DR TABLET PO SCH (08:26)
[2021-03-17] MEDS ORDERED: DIVA-111 PO (12:02)
[2021-03-17] MEDS ORDERED: OLAN10TA74 PO (12:03)
[2021-03-17] MEDS: DIVALPROEX SODIUM 250 MG DR TABLET PO SCH (16:11)
[2021-03-17 16:12] VITALS: BP 121/71
[2021-03-17] MEDS: ZOLPIDEM TARTRATE 10 MG TABLET PO PRN (20:32)
[2021-03-18 00:30] VITALS: BP 129/77
[2021-03-18 08:08] VITALS: BP 145/95
[2021-03-18] MEDS: DIVALPROEX SODIUM 250 MG DR TABLET PO SCH ×2 (08:26→20:14)
[2021-03-18] MEDS: OLANZapine 10 MG TABLET PO SCH ×2 (08:26→20:14)
[2021-03-18 16:11] VITALS: BP 118/73
[2021-03-18] MEDS: ZOLPIDEM TARTRATE 10 MG TABLET PO PRN (20:15)
[2021-03-19] MEDS: DIVALPROEX SODIUM 250 MG DR TABLET PO SCH ×3 (09:00→20:56)
[2021-03-19] MEDS: OLANZapine 10 MG TABLET PO SCH ×3 (09:00→20:56)
[2021-03-19] MEDS: ZOLPIDEM TARTRATE 10 MG TABLET PO PRN (21:24)
[2021-03-19] MEDS ORDERED: BACITRACIN 28 GM OINTMENT TP PRN (22:30)
[2021-03-20 00:53] VITALS: BP 118/73
[2021-03-20] MEDS: OLANZapine 10 MG TABLET PO SCH (09:25)
[2021-03-20] MEDS: DIVALPROEX SODIUM 250 MG DR TABLET PO SCH (09:26)
== END 2021-03-20 16:05 | disposition home or self-care (01) | DRG 885 ==
LOC: EMS 22:27 → B2X 03-11 02:59 → B2S 03-14 12:10
PROVIDERS: ADMIT Psychiatry & Neurology Psychiatry; ATTEND Psychiatry & Neurology Psychiatry
DX: F25.1 Schizoaffective disorder, depressive type (principal); R45.851 Suicidal ideations; Z91.012 Allergy to eggs; Z91.011 Allergy to milk products; Z88.8 Allergy status to other drugs, medicaments and biological substances; Z91.018 Allergy to other foods; I10 Essential (primary) hypertension; J45.909 Unspecified asthma, uncomplicated; F12.90 Cannabis use, unspecified, uncomplicated; F10.10 Alcohol abuse, uncomplicated; E55.9 Vitamin D deficiency, unspecified; Z59.0 Homelessness; Z20.822 Contact with and (suspected) exposure to COVID-19
CPT/HCPCS: 80053; 80061; 80164; 85025; 99285; G0480

== ENCOUNTER 2022-10-27 11:27 | Inpatient (IN) | payer MEDICARE, MEDICAID ==
[~2022-10-27] VITALS: Ht 180.3 cm; Wt 113.0 kg
[~2022-10-27 11:27] MED LIST changes: +DIVA-111 PO; -DIVA-80 PO; -OLAN10 PO; +OLAN10TA74 PO
[2022-10-27 12:04] LABS: BASOPHILS % (AUTO) 0.8 % (0.0-2.0); EOSINOPHILS % (AUTO) 3.4 % (1.0-6.0); HEMATOCRIT 37.7 % (41-53); HEMOGLOBIN 12.6 g/dL (13.5-17.5); LYMPHOCYTES # (AUTO) 3.3 K/uL (1.0-4.8); LYMPHOCYTES % (AUTO) 52.3 % (22.0-44.0); MEAN CORPUSCULAR HEMOGLOBIN 32.3 pg (26.0-34.0); MEAN CORPUSCULAR HGB CONC 33.5 G/dL (31.0-37.0); MEAN CORPUSCULAR VOLUME 96 fL (80-100); MONOCYTES # (AUTO) 0.8 K/uL (0.1-1.0); MONOCYTES % (AUTO) 12.6 % (2.0-9.0); NEUTROPHILS % (AUTO) 30.9 % (40.0-70.0); PLATELET COUNT (AUTO) 180 K/uL (150-450); RED BLOOD CELL COUNT(AUTO) 3.91 MIL/uL (4.50-5.90); RED CELL DISTRIBUTION WIDTH 13.5 % (11.5-14.5)
[2022-10-27 12:11] LABS: ANION GAP 7 mmol/L (8-16); CALCIUM, TOTAL 8.5 mg/dL (8.8-10.5); CARBON DIOXIDE 28 mmol/L (22-29); CHLORIDE 103 mmol/L (98-107); CREATININE 0.96 mg/dL (0.60-1.30); GLOMERULAR FILTR. RATE CALC > 60 mL/min (>60); GLUCOSE,RANDOM 104 mg/dL (70-110); POTASSIUM 3.8 mmol/L (3.5-5.1); SODIUM SERUM 138 mmol/L (136-145); UREA NITROGEN, BLOOD 13 mg/dL (7-18)
[2022-10-27 12:17] LABS: ALANINE AMINOTRANSFERASE 20 U/L (12-78); ALBUMIN 3.5 g/dL (3.4-5.0); ALKALINE PHOSPHATASE 83 U/L (46-116); ASPARTATE AMINOTRANSFERASE 23 U/L (15-37); TOTAL PROTEIN, SERUM 7.3 g/dL (6.4-8.2); VALPROIC ACID 6 mcg/mL (50-100)
[2022-10-27 12:18] LABS: BILIRUBIN,TOTAL < 0.1 mg/dL (0.1-1.0)
[2022-10-27 12:31] LABS: COVID AG,FIA SOURCE NASOPHARYNGEAL
[2022-10-27] MEDS ORDERED: ZOLPIDEM TARTRATE 10 MG TABLET PO PRN (13:45)
[2022-10-27] MEDS ORDERED: LORazepam 1 MG TABLET PO PRN (13:45)
[2022-10-27] MEDS ORDERED: OLANZapine 5 MG RAPDIS TABLET PO PRN (13:45)
[2022-10-27 23:49] VITALS: BP 148/96
[2022-10-28 00:20] VITALS: BP 148/96
[2022-10-28 08:00] VITALS: BP 123/54
[2022-10-28] MEDS: OLANZapine 10 MG TABLET PO SCH ×2 (13:19→20:45)
[2022-10-28] MEDS: DIVALPROEX SODIUM 250 MG DR TABLET PO SCH ×2 (13:19→20:45)
[2022-10-28 16:54] VITALS: BP 120/73
[2022-10-28] MEDS ORDERED: MAGNESIUM HYDROXIDE SUSPENSION 30 ML UDCUP PO PRN (18:15)
[2022-10-28] MEDS ORDERED: LOPERAMIDE HCL 2 MG CAPSULE PO PRN (18:15)
[2022-10-28] MEDS ORDERED: ONDANSETRON HCL 4 MG TABLET PO PRN (18:15)
[2022-10-28] MEDS ORDERED: ALBUTEROL SULFATE HFA 90 MCG/PUFF 8 GM INHALER IH PRN (18:15)
[2022-10-28] MEDS ORDERED: PETROLATUM,WHITE 28 GM JELLY TP PRN (18:15)
[2022-10-28] MEDS ORDERED: DOCUSATE SODIUM 100 MG CAPSULE PO PRN (18:15)
[2022-10-28] MEDS ORDERED: IBUPROFEN 400 MG TABLET PO PRN (18:15)
[2022-10-28] MEDS ORDERED: GuaiFENesin/D-METHORPHAN [SUGAR-FREE] 200-20MG/10 ML SYRUP UDCUP PO PRN (18:15)
[2022-10-28] MEDS ORDERED: NICOTINE 14 MG/24 HOUR PATCH TD PRN (18:15)
[2022-10-28] MEDS ORDERED: MAG HYDROX/AL HYDROX/SIMETH ES 30 ML SUSPENSION UDCUP PO PRN (18:15)
[2022-10-28] MEDS ORDERED: CloNIDine HCL 0.1 MG TABLET PO PRN (18:15)
[2022-10-28] MEDS ORDERED: ACETAMINOPHEN 325 MG TABLET PO PRN (18:15)
[2022-10-29] MEDS: DIVALPROEX SODIUM 250 MG DR TABLET PO SCH ×3 (08:53→20:44)
[2022-10-29] MEDS: OLANZapine 10 MG TABLET PO SCH ×2 (09:13→20:44)
[2022-10-29 21:06] VITALS: BP 125/84
[2022-10-30] MEDS: DIVALPROEX SODIUM 250 MG DR TABLET PO SCH ×2 (09:01→20:29)
[2022-10-30] MEDS: OLANZapine 10 MG TABLET PO SCH ×2 (09:01→20:29)
[2022-10-30 16:38] VITALS: BP 123/62
[2022-10-30 21:08] VITALS: BP 142/83
[2022-10-31] MEDS: OLANZapine 10 MG TABLET PO SCH ×2 (09:09→21:16)
[2022-10-31] MEDS: DIVALPROEX SODIUM 250 MG DR TABLET PO SCH ×2 (09:09→21:16)
[2022-10-31 20:37] VITALS: BP 138/72
[2022-11-01] MEDS: OLANZapine 10 MG TABLET PO SCH ×2 (08:56→21:22)
[2022-11-01] MEDS: DIVALPROEX SODIUM 250 MG DR TABLET PO SCH ×2 (08:56→21:22)
[2022-11-01 16:35] VITALS: BP 120/80
[2022-11-01 20:57] VITALS: BP 138/88
[2022-11-02] MEDS: OLANZapine 10 MG TABLET PO SCH ×2 (10:09→20:07)
[2022-11-02] MEDS: DIVALPROEX SODIUM 250 MG DR TABLET PO SCH ×2 (10:09→20:07)
[2022-11-02 16:49] VITALS: BP 155/98
[2022-11-02 21:17] VITALS: BP 152/92
[2022-11-03] MEDS: DIVALPROEX SODIUM 250 MG DR TABLET PO SCH ×2 (09:55→20:10)
[2022-11-03] MEDS: OLANZapine 10 MG TABLET PO SCH ×2 (09:55→20:10)
[2022-11-03 16:17] VITALS: BP 131/85
[2022-11-03 17:51] LABS: COVID AG,FIA SOURCE NASAL SWAB
[2022-11-03 20:46] VITALS: BP 140/88
[2022-11-04] MEDS: OLANZapine 10 MG TABLET PO SCH ×2 (09:50→21:02)
[2022-11-04] MEDS: DIVALPROEX SODIUM 250 MG DR TABLET PO SCH ×2 (09:50→21:02)
[2022-11-04 16:31] VITALS: BP 139/79
[2022-11-04 21:34] VITALS: BP 131/75
[2022-11-05] MEDS: DIVALPROEX SODIUM 250 MG DR TABLET PO SCH ×2 (09:57→20:32)
[2022-11-05] MEDS: OLANZapine 10 MG TABLET PO SCH ×2 (09:57→20:32)
[2022-11-05 16:08] VITALS: BP 150/80
[2022-11-05] MEDS ORDERED: DIVA-111 PO (19:44)
[2022-11-05] MEDS ORDERED: OLAN10 PO (19:44)
[2022-11-05 20:19] VITALS: BP 141/82
[2022-11-06] MEDS: DIVALPROEX SODIUM 250 MG DR TABLET PO SCH (09:22)
[2022-11-06] MEDS: OLANZapine 10 MG TABLET PO SCH (09:22)
[2022-11-06 09:29] VITALS: BP 118/79
== END 2022-11-06 10:45 | disposition home or self-care (01) | DRG 885 ==
LOC: EMS 11:27 → 3EI 22:21 → EMS 23:19 → 3EI 10-31 20:30
PROVIDERS: ADMIT Psychiatry & Neurology Psychiatry; ATTEND Psychiatry & Neurology Psychiatry
DX: F25.1 Schizoaffective disorder, depressive type (principal); R45.851 Suicidal ideations; Z20.822 Contact with and (suspected) exposure to COVID-19; D64.9 Anemia, unspecified; G47.00 Insomnia, unspecified; I10 Essential (primary) hypertension; J45.909 Unspecified asthma, uncomplicated; Z59.00 Homelessness unspecified; Z79.899 Other long term (current) drug therapy; Z91.51 Personal history of suicidal behavior; Z88.8 Allergy status to other drugs, medicaments and biological substances
CPT/HCPCS: 80053; 80164; 85025; 99285; G0480

== ENCOUNTER 2022-12-03 20:07 | Inpatient (IN) | payer MEDICARE, MEDICAID ==
[~2022-12-03] VITALS: Ht 180.3 cm; Wt 107.0 kg
[~2022-12-03 20:07] MED LIST changes: +OLAN10 PO; -OLAN10TA74 PO
[2022-12-03] MEDS ORDERED: QUEtiapine FUMARATE 100 MG TABLET PO PRN (22:45)
[2022-12-03] MEDS ORDERED: LORazepam 2 MG TABLET PO PRN (22:45)
[2022-12-04 00:25] VITALS: BP 134/82
[2022-12-04] MEDS: ZOLPIDEM TARTRATE 10 MG TABLET PO PRN (01:15)
[2022-12-04] MEDS ORDERED: PNEUMOCOCCAL VACCINE POLYVALENT 0.5 ML VIAL [PPSV23] IM. ONE (05:15)
[2022-12-04] MEDS: BACITRACIN 28 GM OINTMENT TP SCH (09:00)
[2022-12-04] MEDS ORDERED: ONDANSETRON HCL 4 MG TABLET PO PRN (16:45)
[2022-12-04] MEDS ORDERED: MAGNESIUM HYDROXIDE SUSPENSION 30 ML UDCUP PO PRN (16:45)
[2022-12-04] MEDS ORDERED: CloNIDine HCL 0.1 MG TABLET PO PRN (16:45)
[2022-12-04] MEDS ORDERED: DOCUSATE SODIUM 100 MG CAPSULE PO PRN (16:45)
[2022-12-04] MEDS ORDERED: NICOTINE 14 MG/24 HOUR PATCH TD PRN (16:45)
[2022-12-04] MEDS ORDERED: ACETAMINOPHEN 325 MG TABLET PO PRN (16:45)
[2022-12-04] MEDS ORDERED: PETROLATUM,WHITE 28 GM JELLY TP PRN (16:45)
[2022-12-04] MEDS ORDERED: LOPERAMIDE HCL 2 MG CAPSULE PO PRN (16:45)
[2022-12-04] MEDS ORDERED: GuaiFENesin/D-METHORPHAN [SUGAR-FREE] 200-20MG/10 ML SYRUP UDCUP PO PRN (16:45)
[2022-12-04] MEDS ORDERED: ALBUTEROL SULFATE HFA 90 MCG/PUFF 8 GM INHALER IH PRN (16:45)
[2022-12-04] MEDS ORDERED: MAG HYDROX/AL HYDROX/SIMETH ES 30 ML SUSPENSION UDCUP PO PRN (16:45)
[2022-12-04 20:23] VITALS: BP 126/76
[2022-12-04] MEDS: OLANZapine 10 MG TABLET PO SCH (21:00)
[2022-12-04] MEDS: DIVALPROEX SODIUM 250 MG DR TABLET PO SCH (21:00)
[2022-12-04] MEDS: IBUPROFEN 400 MG TABLET PO PRN (21:02)
[2022-12-05] MEDS: DIVALPROEX SODIUM 250 MG DR TABLET PO SCH ×2 (08:43→20:10)
[2022-12-05] MEDS: OLANZapine 10 MG TABLET PO SCH ×2 (08:44→20:10)
[2022-12-05] MEDS: BACITRACIN 28 GM OINTMENT TP SCH ×2 (09:00→18:56)
[2022-12-05 11:07] LABS: HEPATITIS C AB (EIA) Non Reactive (Non Reactive)
[2022-12-05] MEDS: ZOLPIDEM TARTRATE 10 MG TABLET PO PRN (21:09)
[2022-12-06 00:19] VITALS: BP 138/81
[2022-12-06] MEDS: OLANZapine 10 MG TABLET PO SCH ×2 (08:42→20:12)
[2022-12-06] MEDS: DIVALPROEX SODIUM 250 MG DR TABLET PO SCH ×2 (08:42→20:15)
[2022-12-06] MEDS: BACITRACIN 28 GM OINTMENT TP SCH (08:56)
[2022-12-06 13:18] VITALS: BP 118/79
[2022-12-06 17:30] VITALS: BP 124/82
[2022-12-07] MEDS: BACITRACIN 28 GM OINTMENT TP SCH (08:27)
[2022-12-07] MEDS: OLANZapine 10 MG TABLET PO SCH ×2 (08:27→20:10)
[2022-12-07] MEDS: DIVALPROEX SODIUM 250 MG DR TABLET PO SCH ×2 (08:27→20:10)
[2022-12-07 09:51] VITALS: BP 126/74
[2022-12-07 19:30] VITALS: BP 135/79
[2022-12-07] MEDS: ZOLPIDEM TARTRATE 10 MG TABLET PO PRN (21:37)
[2022-12-08] MEDS: OLANZapine 10 MG TABLET PO SCH ×2 (08:43→20:04)
[2022-12-08] MEDS: BACITRACIN 28 GM OINTMENT TP SCH (08:43)
[2022-12-08] MEDS: IBUPROFEN 400 MG TABLET PO PRN (08:43)
[2022-12-08] MEDS: DIVALPROEX SODIUM 250 MG DR TABLET PO SCH ×2 (08:43→20:04)
[2022-12-08 09:26] VITALS: BP 125/77
[2022-12-08 17:28] VITALS: BP 136/81
[2022-12-08] MEDS: ZOLPIDEM TARTRATE 10 MG TABLET PO PRN (20:05)
[2022-12-09 00:24] VITALS: BP 148/82
[2022-12-09] MEDS: BACITRACIN 28 GM OINTMENT TP SCH (08:51)
[2022-12-09] MEDS: OLANZapine 10 MG TABLET PO SCH ×2 (08:51→21:12)
[2022-12-09] MEDS: DIVALPROEX SODIUM 250 MG DR TABLET PO SCH ×2 (08:51→21:12)
[2022-12-09 09:38] VITALS: BP 128/82
[2022-12-09 16:19] VITALS: BP 119/65
[2022-12-09] MEDS: ZOLPIDEM TARTRATE 10 MG TABLET PO PRN (22:22)
[2022-12-10 08:06] VITALS: BP 131/82
[2022-12-10] MEDS: DIVALPROEX SODIUM 250 MG DR TABLET PO SCH ×2 (08:32→20:36)
[2022-12-10] MEDS: OLANZapine 10 MG TABLET PO SCH ×2 (08:32→20:36)
[2022-12-10] MEDS: BACITRACIN 28 GM OINTMENT TP SCH (08:51)
[2022-12-10] MEDS ORDERED: DIVA-111 PO (09:12)
[2022-12-10] MEDS ORDERED: OLAN10 PO (09:12)
[2022-12-10 16:54] VITALS: BP 125/74
[2022-12-10] MEDS: ZOLPIDEM TARTRATE 10 MG TABLET PO PRN (22:16)
[2022-12-11 04:41] VITALS: BP 124/76
[2022-12-11] MEDS: BACITRACIN 28 GM OINTMENT TP SCH (08:42)
[2022-12-11] MEDS: OLANZapine 10 MG TABLET PO SCH ×2 (08:42→20:31)
[2022-12-11] MEDS: DIVALPROEX SODIUM 250 MG DR TABLET PO SCH ×2 (08:42→20:31)
[2022-12-12 00:24] VITALS: BP 121/68
[2022-12-12 08:21] VITALS: BP 118/68
[2022-12-12] MEDS: OLANZapine 10 MG TABLET PO SCH ×2 (08:55→21:05)
[2022-12-12] MEDS: BACITRACIN 28 GM OINTMENT TP SCH (08:56)
[2022-12-12] MEDS: DIVALPROEX SODIUM 250 MG DR TABLET PO SCH ×2 (08:56→21:05)
[2022-12-12 16:06] VITALS: BP 130/83
[2022-12-12] MEDS: ZOLPIDEM TARTRATE 10 MG TABLET PO PRN (21:34)
[2022-12-13 00:28] VITALS: BP 131/82
[2022-12-13 08:49] VITALS: BP 128/72
[2022-12-13] MEDS: DIVALPROEX SODIUM 250 MG DR TABLET PO SCH (08:57)
[2022-12-13] MEDS: OLANZapine 10 MG TABLET PO SCH (08:57)
[2022-12-13] MEDS: BACITRACIN 28 GM OINTMENT TP SCH (08:59)
== END 2022-12-13 12:45 | disposition home or self-care (01) | DRG 885 ==
LOC: B2X 12-04 00:06
PROVIDERS: ADMIT Psychiatry & Neurology Psychiatry; ATTEND Psychiatry & Neurology Psychiatry
DX: F25.1 Schizoaffective disorder, depressive type (principal); R45.851 Suicidal ideations; F33.2 Major depressive disorder, recurrent severe without psychotic features; D64.9 Anemia, unspecified; J45.909 Unspecified asthma, uncomplicated; F19.10 Other psychoactive substance abuse, uncomplicated; F10.10 Alcohol abuse, uncomplicated; E78.5 Hyperlipidemia, unspecified; G47.00 Insomnia, unspecified; I10 Essential (primary) hypertension; F41.9 Anxiety disorder, unspecified; Z88.8 Allergy status to other drugs, medicaments and biological substances; Z91.018 Allergy to other foods
CPT/HCPCS: 86803; 87081; 87340

== ENCOUNTER 2023-02-10 21:27 | Emergency (ER) | payer OTHER, MEDICAID ==
[~2023-02-10] VITALS: Ht 180.3 cm; Wt 90.9 kg
[2023-02-10 22:44] VITALS: BP 146/76; PULSE 86; RESP 18; TEMP 98
== END 2023-02-10 23:23 | disposition home or self-care (01) ==
LOC: EMS 21:27
DX: J01.90 Acute sinusitis, unspecified (principal); B96.89 Other specified bacterial agents as the cause of diseases classified elsewhere; F41.9 Anxiety disorder, unspecified; J45.909 Unspecified asthma, uncomplicated; F31.9 Bipolar disorder, unspecified; E78.00 Pure hypercholesterolemia, unspecified; I10 Essential (primary) hypertension; F20.9 Schizophrenia, unspecified; F17.210 Nicotine dependence, cigarettes, uncomplicated; Z59.00 Homelessness unspecified; Z88.8 Allergy status to other drugs, medicaments and biological substances
CPT/HCPCS: 99283; Z7502